=== PATIENT | male | born 1980 | race African-American/Black ===

== ENCOUNTER 2021-02-14 23:47 | Emergency (ER) | payer SELFPAY ==
[~2021-02-14] VITALS: Ht 177.8 cm; Wt 108.8 kg
[2021-02-14] MEDS ORDERED: RT-ALBUTEROL INHALER HFA (VENTOLIN HFA) 18 GM IH ONE (23:58)
[2021-02-15] MEDS ORDERED: LACTATED RINGERS 1,000 ML IV ONE (00:15)
[2021-02-15 00:25] LABS: HEMOGLOBIN 14.2 g/dL (13.3-17.7); MEAN PLATELET VOLUME 9.9 fL (9.0-12.2)
[2021-02-15 00:26] LABS: BASOPHILS # (AUTO) 0.1 10^3/uL (0.0-0.1); BASOPHILS % (AUTO) 1 % (0-10); EOSINOPHILS % (AUTO) 7 % (0-10); HEMATOCRIT 44 % (40-54); LYMPHOCYTES # (AUTO) 2.9 10^3/uL (1.0-4.0); LYMPHOCYTES % (AUTO) 22 % (12-44); MEAN CORPUSCULAR HEMOGLOBIN 31 pg (25-34); MEAN CORPUSCULAR HGB CONC 32 g/dL (32-36); MEAN CORPUSCULAR VOLUME 95 fL (80-99); MONOCYTES # (AUTO) 1.1 10^3/uL (0.0-1.0); MONOCYTES % (AUTO) 8 % (0-12); NEUTROPHILS # (AUTO) 8.1 10^3/uL (1.8-7.8); NEUTROPHILS % (AUTO) 61 % (42-75); PLATELET COUNT 427 10^3/uL (130-400); WHITE BLOOD COUNT 13.2 10^3/uL (4.3-11.0)
[2021-02-15 00:35] LABS: ALBUMIN 3.8 GM/DL (3.2-4.5); CHLORIDE 103 MMOL/L (98-107); POTASSIUM 3.6 MMOL/L (3.6-5.0); SODIUM 141 MMOL/L (135-145)
[2021-02-15 00:37] LABS: GLUCOSE 101 MG/DL (70-105)
[2021-02-15 00:39] LABS: BILIRUBIN,TOTAL 0.3 MG/DL (0.1-1.0); CARBON DIOXIDE 27 MMOL/L (21-32)
[2021-02-15 00:41] LABS: ALKALINE PHOSPHATASE 115 U/L (40-136); CREATININE SERUM 0.83 MG/DL (0.60-1.30); GFR ESTIMATED > 60
[2021-02-15 00:42] LABS: BUN/CREATININE RATIO 11
[2021-02-15 00:44] LABS: ALANINE AMINOTRANSFERASE 17 U/L (0-55)
[2021-02-15 00:49] LABS: FIBRIN DEGRADATION PRODUCTS 0.78 UG/ML (0.00-0.49); INR 0.9 (0.8-1.4); PROTHROMBIN TIME PATIENT 12.1 SEC (12.2-14.7)
[2021-02-15 01:42] LABS: BILIRUBIN,URINE NEGATIVE (NEGATIVE); CLARITY,URINE CLEAR; COLOR,URINE YELLOW; GLUCOSE, URINE (UA) NEGATIVE (NEGATIVE); KETONES,URINE NEGATIVE (NEGATIVE); LEUKOCYTE ESTERASE ,URINE NEGATIVE (NEGATIVE); NITRITE,URINE NEGATIVE (NEGATIVE); PROTEIN,URINE NEGATIVE (NEGATIVE)
[2021-02-15 01:50] LABS: BACTERIA,URINE TRACE /HPF; RBC,URINE 25-50 /HPF; WBC,URINE 0-2 /HPF
--- NOTE | 2021-02-15 01:54 | ED General ---
General Chief Complaint: Respiratory Problems Stated Complaint: SOB,HOT & COLD,DIARRHEA,COUGH Nursing Triage Note: Pt ambulatory into ER with complaint of SOA x2 days. Pt states that he is out of his albuterol at home. Pt states that he hasn't been around anyone sick except his baby nephew who has pneumonia. Pt denies chest pain. Pt denies fever. Pt states that he has had some dry heaves. Pt states that he has been having diarrhea. Pt is SOA with minimal exertion. Pt immediately states that he needs a breathing treatment. Upon entering room pt has o2 of 92% on room air with RR of 24. Nursing Sepsis Screen: No Definite Risk Source of Information: Patient Exam Limitations: No Limitations History of Present Illness Date Seen by Provider: Feb 15, 2021 Time Seen by Provider: 00:00 Initial Comments This 40-year-old man presents to the emergency room with complaints of shortness of breath, wheezing, chills, diaphoresis, dry heaves, and diarrhea for the past couple of days. He has no known Covid exposures. He is out of his albuterol inhaler. He has been around his baby nephew who reportedly has pneumonia. Allergies and Home Medications Allergies Coded Allergies: No Known Drug Allergies (Unverified , 02/15/21) Home Medications Prednisone 20 Mg Tab, 40 MG PO DAILY Prescribed by: TRISH AMADOR on 02/15/21 0253 Patient Home Medication List Home Medication List Reviewed: Yes Review of Systems Review of Systems Constitutional: see HPI EENTM: no symptoms reported Respiratory: see HPI Cardiovascular: no symptoms reported Gastrointestinal: see HPI Genitourinary: no symptoms reported Musculoskeletal: no symptoms reported Skin: see HPI Psychiatric/Neurological: No Symptoms Reported Hematologic/Lymphatic: No Symptoms Reported Immunological/Allergic: no symptoms reported Past Xopsnyx-Vxjcxy-Bobwvg Hx Past Med/Social Hx: Reviewed Nursing Past Med/Soc Hx Patient Social History Alcohol Use: Occasionally Uses Alcohol Beverage of Choice: Beer Smoking Status: Current Everyday Smoker Type Used: Cigarettes Recent Infectious Disease Expo: No Recent Hopitalizations: No Immunizations Up To Date Tetanus Booster (TDap): Less than 5yrs PED Vaccines UTD: Yes Seasonal Allergies Seasonal Allergies: No Past Medical History Surgeries: Yes (Posttraumatic pulmonary procedure) Respiratory: Yes Asthma Currently Using CPAP: No Currently Using BIPAP: No Cardiac: No Neurological: No Genitourinary: No Gastrointestinal: No Musculoskeletal: No Endocrine: No HEENT: No Cancer: No Psychosocial: No Blood Disorders: No Physical Exam-Suspected Sepsis Physical Exam Vital Signs Vital Signs - First Documented 02/14/21 02/15/21 23:58 00:01 Temp 35.9 Pulse 98 Resp 24 B/P (MAP) 171/114 (133) Pulse Ox 92 O2 Delivery Room Air O2 Flow Rate 2.00 FiO2 97 Capillary Refill : Less Than 3 Seconds Blood Pressure Mean: 133 Height, Weight, BMI Height: '" Weight: lbs. oz. kg; 34.00 BMI Method: General Appearance: WD/WN, Mild Distress HEENT: Normal ENT Inspection, Pharynx Normal Neck: Normal Inspection Respiratory: No Accessory Muscle Use, No Respiratory Distress, Wheezing, Other (Tachypneic) Cardiovascular: Regular Rate, Rhythm, No Edema, No Murmur Gastrointestinal: Normal Bowel Sounds, Non Tender, Soft Extremity: Normal Inspection, No Pedal Edema Neurologic/Psychiatric: Alert, Oriented x3, No Motor/Sensory Deficits, Normal Mood/Affect, manager pulmonary II-XII Norm as Tested Skin: normal color, warm/dry Focused Exam Lactate Level 02/15/21 00:12: Lactic Acid Level 2.12*H 02/15/21 02:14: Lactic Acid Level 1.55 Lactic Acid Level Progress/Results/Core Measures Suspected Sepsis Recent Fever Within 48 Hours: No Infection Criteria Present: None New/Unexplained Altered Menta: No Sepsis Screen: No Definite Risk SIRS Temperature: Pulse: 98 Respiratory Rate: 24 Laboratory Tests 02/15/21 00:12: White Blood Count 13.2H Blood Pressure 171 /114 Mean: 133 02/15/21 00:12: Lactic Acid Level 2.12*H 02/15/21 02:14: Lactic Acid Level 1.55 Laboratory Tests 02/15/21 00:12: Creatinine 0.83, INR Comment 0.9, Platelet Count 427H, Total Bilirubin 0.3 Results/Orders Lab Results Laboratory Tests Test 02/15/21 00:12 02/15/21 00:22 02/15/21 01:36 02/15/21 02:14 Range/Units White Blood Count 13.2 H 4.3-11.0 10^3/uL Red Blood Count 4.63 4.30-5.52 10^6/uL Hemoglobin 14.2 13.3-17.7 g/dL Hematocrit 44 40-54 % Mean Corpuscular Volume 95 80-99 fL Mean Corpuscular Hemoglobin 31 25-34 pg Mean Corpuscular Hemoglobin Concent 32 32-36 g/dL Red Cell Distribution Width 14.2 10.0-14.5 % Platelet Count 427 H 130-400 10^3/uL Mean Platelet Volume 9.9 9.0-12.2 fL Immature Granulocyte % (Auto) 0 % Neutrophils (%) (Auto) 61 42-75 % Lymphocytes (%) (Auto) 22 12-44 % Monocytes (%) (Auto) 8 0-12 % Eosinophils (%) (Auto) 7 0-10 % Basophils (%) (Auto) 1 0-10 % Neutrophils # (Auto) 8.1 H 1.8-7.8 10^3/uL Lymphocytes # (Auto) 2.9 1.0-4.0 10^3/uL Monocytes # (Auto) 1.1 H 0.0-1.0 10^3/uL Eosinophils # (Auto) 1.0 H 0.0-0.3 10^3/uL Basophils # (Auto) 0.1 0.0-0.1 10^3/uL Immature Granulocyte # (Auto) 0.0 0.0-0.1 10^3/uL Prothrombin Time 12.1 L 12.2-14.7 SEC INR Comment 0.9 0.8-1.4 Activated Partial Thromboplast Time 28 24-35 SEC D-Dimer 0.78 H 0.00-0.49 UG/ML Sodium Level 141 135-145 MMOL/L Potassium Level 3.6 3.6-5.0 MMOL/L Chloride Level 103 98-107 MMOL/L Carbon Dioxide Level 27 21-32 MMOL/L Anion Gap 11 5-14 MMOL/L Blood Urea Nitrogen 9 7-18 MG/DL Creatinine 0.83 0.60-1.30 MG/DL Estimat Glomerular Filtration Rate > 60 BUN/Creatinine Ratio 11 Glucose Level 101 70-105 MG/DL Lactic Acid Level 2.12 *H 1.55 0.50-2.00 MMOL/L Calcium Level 9.0 8.5-10.1 MG/DL Corrected Calcium 9.2 8.5-10.1 MG/DL Total Bilirubin 0.3 0.1-1.0 MG/DL Aspartate Amino Transf (AST/SGOT) 14 5-34 U/L Alanine Aminotransferase (ALT/SGPT) 17 0-55 U/L Alkaline Phosphatase 115 40-136 U/L Lactate Dehydrogenase 269 H 125-220 U/L C-Reactive Protein High Sensitivity 1.44 H 0.00-0.50 MG/DL Total Protein 8.0 6.4-8.2 GM/DL Albumin 3.8 3.2-4.5 GM/DL Procalcitonin 0.04 <0.10 NG/ML Coronavirus 2019 ([facility]) Negative Negative Urine Color YELLOW Urine Clarity CLEAR Urine pH 7.0 5-9 Urine Specific [place] 1.025 H 1.016-1.022 Urine Protein NEGATIVE NEGATIVE Urine Glucose (UA) NEGATIVE NEGATIVE Urine Ketones NEGATIVE NEGATIVE Urine Nitrite NEGATIVE NEGATIVE Urine Bilirubin NEGATIVE NEGATIVE Urine Urobilinogen 0.2 < = 1.0 MG/DL Urine Leukocyte Esterase NEGATIVE NEGATIVE Urine RBC (Auto) 3+ H NEGATIVE Urine RBC 25-50 H /HPF Urine WBC 0-2 /HPF Urine Crystals NONE /LPF Urine Bacteria TRACE /HPF Urine Casts NONE /LPF Urine Mucus NEGATIVE /LPF Urine Culture Indicated CULTURE PENDING Micro Results Microbiology 02/15/21 Influenza Types A,B Antigen (LISA) - Final, Complete My Orders Orders - TRISH RIZZO MD Albuterol Inhaler (Ventolin Hfa) (02/14/21 23:58) Cbc With Automated Diff (02/15/21 00:07) Comprehensive Metabolic Panel (02/15/21 00:07) Blood Culture (02/15/21 00:07) Sputum Culture (02/15/21 00:07) Urinalysis (02/15/21 00:07) Urine Culture (02/15/21 00:07) Protime With Inr (02/15/21 00:07) Partial Thromboplastin Time (02/15/21 00:07) Chest 1 View, Ap/Pa Only (02/15/21 00:07) Ed Iv/Invasive Line Start (02/15/21 00:07) Ed Iv/Invasive Line Start (02/15/21 00:07) Vital Signs Adult Sepsis Patie Q15M (02/15/21 00:07) O2 (02/15/21 00:07) Remove Rings In Anticipation O (02/15/21 00:07) Lactic Acid Analyzer (02/15/21 00:07) Influenza A And B Antigens (02/15/21 00:07) Fibrin Degradation Products (02/15/21 00:07) Procalcitonin (Pct) (02/15/21 00:07) Hs C Reactive Protein (02/15/21 00:07) LDH (02/15/21 00:07) Covid 19 Inhouse Test (02/15/21 00:07) Lactated Ringers (Lr 1000 Ml Iv Solution (02/15/21 00:15) Dexamethasone Injection (Decadron Inje (02/15/21 00:15) Coronavirus Sars-Cov-2 So 2019 (02/15/21 01:06) Ct Angio Chest W (02/15/21 01:07) Ondansetron Injection (Zofran Injectio (02/15/21 02:00) Iohexol Injection (Omnipaque 350 Mg/Ml 1 (02/15/21 02:00) Received Contrast (Hold Metformin- Contr (02/15/21 02:00) Sodium Chloride Flush (Catheter Flush Sy (02/15/21 02:00) Ns (Ivpb) (Sodium Chloride 0.9% Ivpb Bag (02/15/21 02:00) Medications Given in ED Current Medications Medications Dose Ordered Sig/Hellen Route Start Time Stop Time Status Last Admin Dose Admin Albuterol Sulfate 18 gm STK-MED ONCE IH 02/14/21 23:58 02/15/21 00:05 DC 02/15/21 00:06 18 GM Dexamethasone Sodium Phosphate 6 mg ONCE ONCE IV 02/15/21 00:15 02/15/21 00:16 DC 02/15/21 00:21 6 MG Iohexol 100 ml ONCE ONCE IV 02/15/21 02:00 02/15/21 02:01 DC 02/15/21 02:02 90 ML Lactated Ringer's 1,000 ml @ 0 mls/hr Q0M ONCE IV 02/15/21 00:15 02/15/21 00:16 DC 02/15/21 00:21 999 MLS/HR Ondansetron HCl 8 mg ONCE ONCE IVP 02/15/21 02:00 02/15/21 02:01 DC 02/15/21 02:04 8 MG Sodium Chloride 10 ml NEEDED PRN IV 02/15/21 02:00 02/15/21 04:15 DC 02/15/21 02:02 10 ML Sodium Chloride 100 ml ONCE ONCE IV 02/15/21 02:00 02/15/21 02:01 DC 02/15/21 02:02 80 ML Vital Signs/I&O 02/14/21 02/15/21 02/15/21 23:58 00:01 03:03 Temp 35.9 Pulse 98 85 Resp 24 20 B/P (MAP) 171/114 (133) 148/87 Pulse Ox 92 97 94 O2 Delivery Room Air Nasal Cannula Room Air O2 Flow Rate 2.00 2.00 FiO2 97 Capillary Refill : Less Than 3 Seconds Blood Pressure Mean: 133 Progress Note : Progress Note Patient was seen and examined. Rapid Covid and influenza screens were negative. A backup Covid PCR test was ordered. Patient was treated with albuterol inhaler which significantly improved his breathing. D-dimer was mildly elevated. CT angiogram was obtained. Unfortunately patient Valsalva prior to vomiting during the procedure. This interrupted the contrast bolusing. No pulmonary emboli were seen on the CT scan but it was insufficient bolusing for complete diagnostic assessment. Patient was significantly improved after albuterol so he was therefore not empirically treated for PE. He was given return precautions due to the insufficient diagnostic quality of the CTA. I explained the situation to him and why he should return if symptoms worsen. Dexamethasone was given for asthma exacerbation. Prednisone was prescribed to continue on an outpatient basis. No evidence of bacterial infection was found. CT angiogram showed no consolidation or infiltrate consistent with pneumonia or Covid. Patient received a liter of LR and Zofran for nausea. Diagnostic Imaging Diagonstic Imaging: Xray Plain Films/CT/US/NM/MRI: chest Comments Chest x-ray viewed by me. Report not yet available. No acute abnormalities appreciated. Diagonstic Imaging: CT Plain Films/CT/US/NM/MRI: chest Comments CT angiogram of the chest reviewed by me and stat rad report reviewed. In-house report below: NAME: ORIANA ZURITA MED REC#: [id number] PT STATUS: DEP ER : 1980 PHYSICIAN: TRISH RIZZO MD ADMIT DATE: 02/14/21/ER Draft Date of Exam:02/15/21 CT ANGIO CHEST W PROCEDURE: CT angiography of the chest with contrast. TECHNIQUE: Multiple contiguous axial images were obtained through the chest after uneventful bolus administration of intravenous contrast. 3D reconstructed CTA MIP acquisitions were also performed. Auto Exposure Controls were utilized during the CT exam to meet ALARA standards for radiation dose reduction. INDICATION: Shortness fair, cough and congestion. CORRELATION STUDY: None FINDINGS: This is a nondiagnostic evaluation of the pulmonary arteries. There is reported interruption of the contrast bolus. The heart size is within normal lives. No disproportionate right heart strain. Thoracic aorta unremarkable. Calcified mediastinal and subcarinal lymph nodes. Small hiatal hernia. Lung cosme demonstrate no mike lobar consolidation, effusion and/or pneumothorax. There is a diffuse bronchial wall thickening. Visualized osseous structures demonstrate degenerative change and osteophyte formation. To be at the T7-T8 level. At this level, there is interruption of the osteophyte. Spleen is not identified at its normal location. Probable splenule located between stomach and upper pole of the left kidney. IMPRESSION: 1. Nondiagnostic evaluation for pulmonary embolism due to interruption of contrast bolus. 2. Diffuse bronchial wall thickening. May reflect nonspecific bronchitis. No lobar consolidation. 3. Osteophytes of the thoracic spine. May be potential for subacute fracture of the anterior bridging osteophyte at T7-T8. Initial report was provided by Mary. Dict: 02/15/21 0634 Trans: 02/15/21 0650 CV [id number] Interpreted by: JULIANNE ALANIZ DO Departure Impression Primary Impression: Acute bronchitis Qualified Codes: J20.9 - Acute bronchitis, unspecified Additional Impressions: Hematuria Qualified Codes: R31.9 - Hematuria, unspecified Asthma exacerbation Qualified Codes: J45.901 - Unspecified asthma with (acute) exacerbation Disposition: 01 HOME, SELF-CARE Condition: Improved Departure-Patient Inst. Decision time for Depature: 02:50 Referrals: [facility] (PCP/Family) Primary Care Physician Patient Instructions: Acute Bronchitis, Blood in the Urine (Hematuria) in Adults Add. Discharge Instructions: Complete the prednisone steroid as prescribed. Use your inhaler up to 4 puffs in a 4-hour period of time as needed for wheezing and shortness of breath. Drink plenty of clear liquids to stay well-hydrated. Return to the emergency room if you have worsening symptoms. Follow-up with your primary care provider in a week or 2 to repeat a urine test. You had a small amount of blood in your urine and we need to be sure that this blood clears. If blood persists, this could be a sign of other problems such as bladder or kidney cancer and should be worked up more thoroughly. Call with any questions or concerns. All discharge instructions reviewed with patient and/or family. Voiced understanding. Scripts Prednisone (Prednisone) 20 Mg Tab 40 MG PO DAILY, #8 TAB Prov: TRISH RIZZO MD 02/15/21 Copy Copies To 1: LARRY PARK JOSHUA T MD Feb 15, 2021 01:54
[2021-02-15] MEDS ORDERED: ONDANSETRON 4 MG/2 ML (SDV) Z0FRAN IVP ONE (02:00)
[2021-02-15] MEDS ORDERED: NS 100 ML (IVPB) BAG IV ONE (02:00)
[2021-02-15] MEDS ORDERED: CATHETER FLUSH 10 ML SYR IV PRN (02:00)
[2021-02-15] MEDS ORDERED: IOHEXOL 350 MG/ML 100 ML (OMNIPAQUE 350) VIAL IV ONE (02:00)
[2021-02-15] MEDS ORDERED: HOLD METFORMIN - RECEIVED CONTRAST 20 ML VIAL IV SCH (02:00)
[2021-02-15] MEDS ORDERED: PRD20T PO (02:53)
[2021-02-15 03:03] VITALS: BP 148/87
--- NOTE | 2021-02-15 06:51 | Diagnostic Imaging Report ---
PROCEDURE: CT angiography of the chest with contrast. TECHNIQUE: Multiple contiguous axial images were obtained through the chest after uneventful bolus administration of intravenous contrast. 3D reconstructed CTA MIP acquisitions were also performed. Auto Exposure Controls were utilized during the CT exam to meet ALARA standards for radiation dose reduction. INDICATION: Shortness fair, cough and congestion. CORRELATION STUDY: None FINDINGS: This is a nondiagnostic evaluation of the pulmonary arteries. There is reported interruption of the contrast bolus. The heart size is within normal lives. No disproportionate right heart strain. Thoracic aorta unremarkable. Calcified mediastinal and subcarinal lymph nodes. Small hiatal hernia. Lung cosme demonstrate no mike lobar consolidation, effusion and/or pneumothorax. There is a diffuse bronchial wall thickening. Visualized osseous structures demonstrate degenerative change and osteophyte formation. To be at the T7-T8 level. At this level, there is interruption of the osteophyte. Spleen is not identified at its normal location. Probable splenule located between stomach and upper pole of the left kidney. IMPRESSION: 1. Nondiagnostic evaluation for pulmonary embolism due to interruption of contrast bolus. 2. Diffuse bronchial wall thickening. May reflect nonspecific bronchitis. No lobar consolidation. 3. Osteophytes of the thoracic spine. May be potential for subacute fracture of the anterior bridging osteophyte at T7-T8. Initial report was provided by [facility]. Dictated by: Dictated on workstation # [id number]
--- NOTE | 2021-02-15 07:12 | Diagnostic Imaging Report ---
Clinical indication: Patient with shortness of air, cough, and congestion. Patient is in COVID 19 precautions. Exam: Portable chest x-ray upright view. Comparisons: None. Findings: Lungs/pleura: There is very minimal left basilar atelectasis versus infiltrate. Remainder of the lungs are clear. There is no pneumothorax. There is no pleural effusion. Mediastinum: Unremarkable. Pulmonary vasculature: Unremarkable. Heart: Unremarkable. Bones/extrathoracic soft tissue: There are degenerative spurs involving the thoracic spine. Impression: There is very minimal left basilar atelectasis versus infiltrate. Dictated by: Dictated on workstation # [id number]
== END 2021-02-15 03:03 | disposition home or self-care (01) ==
LOC: ER 23:53
DX: J20.9 Acute bronchitis, unspecified (principal); R31.9 Hematuria, unspecified; J45.901 Unspecified asthma with (acute) exacerbation; I10 Essential (primary) hypertension; F17.210 Nicotine dependence, cigarettes, uncomplicated; Z20.822 Contact with and (suspected) exposure to COVID-19; Z79.52 Long term (current) use of systemic steroids
CPT/HCPCS: 71045; 71275; 80053; 81000; 83605; 83615; 84145; 85025; 85379; 85610; 85730; 86141; 87040; 87088; 87804; 99284; U0002; 36415; 87635